=== PATIENT | female | born 1995 | race Caucasian/White ===

== ENCOUNTER 2017-07-26 15:40 | Emergency (ER) | payer OTHER ==
[2017-07-26 15:54] VITALS: BP 121/75
[2017-07-26] MEDS ORDERED: BENZONATATE 100 MG CAPSULE PO STA (16:17)
[2017-07-26] MEDS ORDERED: guaiFENesin/DEXTROMETHORPHAN 10 ML UDC PO STA (16:17)
[2017-07-26] MEDS ORDERED: IBUPROFEN 400 MG TABLET PO STA (16:17)
--- NOTE | 2017-07-26 16:20 | ED Physician Documentation ---
History of Present Illness - Stated complaint Stated Complaint: BODY ACHES/CONGESTED/VIDALES - Chief complaint Chief Complaint: Heent - Additonal information Additional information: hx from pt 22 y/o AD [place] female awoke with headache myalgias congestion cough and feeling foggy denies preg LMP just ended Review of Systems Constitutional: reports: Chills, Myalgias, Fatigue Ears: denies: Ear pain Nose: reports: Congestion Throat: denies: Sore throat Respiratory: reports: Cough GI: denies: Vomiting, Diarrhea : denies: Now [facility] PAST MEDICAL HISTORY - Present Medications Home Medications: Ambulatory Orders Medication Instructions Recorded Confirmed Benzonatate [Tessalon] 100 mg PO TID PRN #20 capsule 07/26/17 Controll 07/26/17 Fluticasone [Flonase] 1 sprays KELLI BID PRN #1 bottle 07/26/17 Ibuprofen [Motrin] 400 mg PO Q6H PRN #20 tablet 07/26/17 guaiFENesin/DEXTROMETHORPHAN 10 ml PO Q6H PRN #120 ml 07/26/17 [Robitussin Dm] - Allergies Allergies/Adverse Reactions: Allergies Allergy/AdvReac Type Severity Reaction Status Date / Time amoxicillin Allergy Itching Verified 07/26/17 15:54 PD ED PE NORMAL - Vitals Vital signs reviewed: Yes - General General: Alert and oriented X 3 - HEENT HEENT: PERRL, Ears normal, Moist mucous membranes, Pharynx benign - Neck Neck: Supple, no meningeal sign - Cardiac Cardiac: RRR - Respiratory Respiratory: No respiratory distress, Clear bilaterally - Abdomen Abdomen: Non tender - Neuro Neuro: Alert and oriented X 3 Results - Vitals Vitals: Vital Signs - 24 hr 07/26/17 15:49 Temperature 36.8 C Heart Rate 86 Respiratory 16 Rate Blood Pressure 121/75 O2 Saturation 97 Oxygen O2 Source Room air - Labs Labs: Laboratory Tests 07/26/17 16:50 Influenza A (Rapid) Negative Influenza B (Rapid) Negative Influenza Types A,B Ag - Departure - Departure Disposition: 01 Home, Self Care Clinical Impression: Viral syndrome Condition: Good Instructions: ED Viral Syndrome Follow-Up: [facility] [Provider Group] Prescriptions: Benzonatate [Tessalon] 100 mg PO TID PRN #20 capsule PRN Reason: to ease cough Fluticasone [Flonase] 1 sprays KELLI BID PRN #1 bottle PRN Reason: congestion guaiFENesin/DEXTROMETHORPHAN [Robitussin Dm] 10 ml PO Q6H PRN #120 ml PRN Reason: Cough Ibuprofen [Motrin] 400 mg PO Q6H PRN #20 tablet PRN Reason: Pain Comments: The flu swabs were negative. The test is not 100% accurate so you could actually still have influenza - or else another respiratory virus You lungs sounds clear - I don't think you have pneumonia. 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 Rest and drink plenty of fluids Forms: Activity restrictions
== END 2017-07-26 17:55 | disposition home or self-care (01) ==
LOC: ED 15:40
DX: B34.9 Viral infection, unspecified (principal)
CPT/HCPCS: 87275; 87276; 99283

== ENCOUNTER 2017-09-10 14:12 | Emergency (ER) | payer OTHER ==
--- NOTE | 2017-09-10 15:02 | ED Physician Documentation ---
PD HPI URI - Stated complaint Stated Complaint: FLU LIKE SX - Chief complaint Chief Complaint: Resp - History obtained from History obtained from: Patient - History of Present Illness Timing - onset: How many weeks ago (2 weeks of sinus congestion and some cough. Cough much worse the past 3-4 days.) Timing duration: Days (for productive cough), Weeks (for URI generally) Timing details: Gradual onset, Still present Associated symptoms: Fever, Chills, Nasal congestion (for couple of weeks), Productive cough (for 3-4 days worsening). No: Hemoptysis, Chest pain, NVD Contributing factors: Sick contact (others at work). No: Travel, Immunocompromised, COPD / asthma Similar symptoms before: Has not had sx before Recently seen: Not recently seen Review of Systems Constitutional: reports: Chills, Myalgias Nose: reports: Rhinorrhea / runny nose, Congestion Cardiac: denies: Chest pain / pressure Respiratory: reports: Cough, Wheezing. denies: Dyspnea GI: denies: Nausea, Vomiting, Diarrhea Skin: denies: Rash PD PAST MEDICAL HISTORY - Past Medical History Past Medical History: No Respiratory: None - Past Surgical History Past Surgical History: No - Present Medications Home Medications: Ambulatory Orders Medication Instructions Recorded Confirmed Benzonatate [Tessalon] 100 mg PO TID PRN #20 capsule 07/26/17 Controll 07/26/17 Albuterol Sulf [Ventolin Hfa 1 - 2 puffs INH Q4HR PRN #1 inhaler 09/10/17 Inhaler] Dexamethasone [Decadron] 4 mg PO DAILY #5 tablet 09/10/17 Doxycycline Monohydrate 100 mg PO BID #14 tablet 09/10/17 guaiFENesin/CODEINE [Robitussin AC] 5 ml PO Q6H PRN #240 ml 09/10/17 - Allergies Allergies/Adverse Reactions: Allergies Allergy/AdvReac Type Severity Reaction Status Date / Time amoxicillin Allergy Itching Verified 09/10/17 14:17 - Social History Does the pt smoke?: No Smoking Status: Never smoker Does the pt drink ETOH?: Yes Does the pt have substance abuse?: No - Immunizations Immunizations are current?: Yes PD ED PE NORMAL - Vitals Vital signs reviewed: Yes - General General: Alert and oriented X 3, No acute distress, Well developed/nourished - HEENT HEENT: Ears normal, Moist mucous membranes, Pharynx benign - Neck Neck: Supple, no meningeal sign, No adenopathy - Cardiac Cardiac: RRR, No murmur - Respiratory Respiratory: No: Clear bilaterally (no coarse sounds but some element of central exp wheezing and with cough. periphery is clear. ) - Abdomen Abdomen: Soft, Non tender - Back Back: No CVA TTP - Derm Derm: Normal color, Warm and dry - Extremities Extremities: No deformity, No tenderness to palpate - Neuro Neuro: Alert and oriented X 3, No motor deficit, Normal speech Results - Vitals Vitals: Vital Signs - 24 hr 09/10/17 09/10/17 14:14 15:51 Temperature 36.8 C 37.1 C Heart Rate 86 79 Respiratory 18 18 Rate Blood Pressure 131/90 H 119/76 O2 Saturation 98 98 Oxygen O2 Source Room air - Labs Labs: Laboratory Tests 09/10/17 14:19 Influenza A (Rapid) Negative Influenza B (Rapid) Negative Influenza Types A,B Ag - PD MEDICAL DECISION MAKING - ED course Complexity details: considered differential (had URI symptoms for 2 weeks, now worse productive cough sounding like possible bacterial secondary.) Departure - Departure Disposition: 01 Home, Self Care Clinical Impression: Bronchitis, acute Qualifiers: Bronchitis organism: unspecified organism Qualified Code(s): J20.9 - Acute bronchitis, unspecified Condition: Stable Record reviewed to determine appropriate education?: Yes Instructions: ED Upper Resp Infec Abx Tx Follow-Up: [facility] [Provider Group] Prescriptions: Albuterol Sulf [Ventolin Hfa Inhaler] 1 - 2 puffs INH Q4HR PRN #1 inhaler PRN Reason: Shortness Of Air/Wheezing Dexamethasone [Decadron] 4 mg PO DAILY #5 tablet Doxycycline Monohydrate 100 mg PO BID #14 tablet guaiFENesin/CODEINE [Robitussin AC] 5 ml PO Q6H PRN #240 ml PRN Reason: Cough Comments: Drink lots of fluids. Given the duration of your symptoms and now worsening cough, will cover for potential bacterial cause as well as the more common viral cause. Continue the Tessalon if needed for cough. Add albuterol inhaler 2 puffs 4 times a day for the next 7-10 days. Add Decadron steroid anti- inflammatory daily for 5 more days. These 2 will help quite a bit with your symptoms. He can add stronger cough medicine if needed. Will also give doxycycline antibiotic twice daily for a week. Off work for couple of days. Recheck if not improving over the next 2-3 days. Forms: Activity restrictions Discharge Date/Time: 09/10/17 15:51
[2017-09-10] MEDS ORDERED: DEXAMETHASONE 10 MG/ML VIAL PO STA (15:23)
[2017-09-10] MEDS ORDERED: DOXYCYCLINE 100 MG TABLET PO STA (15:24)
[2017-09-10] MEDS ORDERED: CHERRY SYRUP 10 ML UDC PO ONE (15:45)
[2017-09-10 15:52] VITALS: BP 119/76
== END 2017-09-10 15:51 | disposition home or self-care (01) ==
LOC: ED 14:12
DX: J20.9 Acute bronchitis, unspecified (principal)
CPT/HCPCS: 87275; 87276; 99283; A9270